=== PATIENT | female | born 1985 | race Caucasian/White ===

== ENCOUNTER 2021-01-01 06:56 | Day surgery (SDC) | payer BC ==
--- NOTE | 2020-12-31 11:41 | PCM.PREANE ---
Preanesthetic Assessment - Anesthesia/Transfusion/Family Hx Anesthesia History: Prior Anesthesia Without Reaction Family History of Anesthesia Reaction: No Transfusion History: No Prior Transfusion(s) Intubation History: Unknown - Review of Systems General: No Symptoms Pulmonary: No Symptoms (Former smoker: quit 17 yrs ago. ETOH: occasionally; Marijuana: yesterday History of Methamphetamine use in 2019.) Cardiovascular: No Symptoms, Dyspnea on Exertion, Lightheadedness (hypoglycemic) Gastrointestinal: No Symptoms (GERD) Neurological: No Symptoms, Numbness (bilateral with left greater than right CTS.) Other: Reports: Easy Bruising, Liver Problems (Fatty Liver in the past.), Depression, Anxiety - Physical Assessment NPO Status Date: 12/31/20 NPO Status Time: 21:00 Vital Signs: HR:66 Sat:98% Temp:97.8 B/P:114/50 Resp:16 Height: 1.68 m Weight: 115 kg ASA Class: 3 Mental Status: Alert & Oriented x3 Airway Class: Mallampati = 3 Dentition: Reports: Dentures (upper glued in solid.), Caries Thyro-Mental Finger Breadths: 3 Mouth Opening Finger Breadths: 3 ROM/Head Extension: Full Lungs: Clear to Auscultation, Normal Respiratory Effort Cardiovascular: Regular Rate, Regular Rhythm, No Murmurs - Allergies Allergies/Adverse Reactions: Allergies Allergy/AdvReac Type Severity Reaction Status Date / Time bee venom protein (honey bee) Allergy Anaphylactic Verified 01/01/21 07:30 Shock - Anesthesia Plan Pre-Op Medication Ordered: None - Acknowledgements Anesthesia Type Planned: MAC Pt an Appropriate Candidate for the Planned Anesthesia: Yes Alternatives and Risks of Anesthesia Discussed w Pt/Guardian: Yes Pt/Guardian Understands and Agrees with Anesthesia Plan: Yes PreAnesthesia 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 [No Known Home Meds] 12/31/20 [History] - CURRENT (IN HOUSE) MEDS Current Meds: Current Medications Lactated Ringer's (Ringers, Lactated) 1,000 mls @ 125 mls/hr IV ASDIRECTED MARGI Stop: 01/01/21 23:00 Lidocaine/Sodium Bicarbonate (Lidocaine 1%/Sod Bicarbonate In Ns 8.4% 1 Ml Syringe) 0.25 ml IDERM ONETIME PRN PRN Reason: Prior to IV Start Stop: 01/01/21 18:00 Sodium Chloride (Sodium Chloride 0.9% 10 Ml Syringe) 10 ml FLUSH ASDIRECTED PRN PRN Reason: Keep Vein Open Stop: 01/01/21 18:00
[~2021-01-01 06:56] MED LIST: Lactated Ringers 1,000 ML IV SCH; Lidocaine 1%/Sod Bicarbonate in NS 8.4% 1 ML Syringe IDERM PRN; Sodium Chloride 0.9% 10 ML Syringe FLUSH PRN
[2021-01-01] MEDS ORDERED: Lidocaine 1% 4 ML ONE (07:05)
[2021-01-01] MEDS ORDERED: Propofol 200 MG/20 ML SDV ONE ×2 (07:05→08:10)
[2021-01-01] MEDS ORDERED: fentaNYL 100 MCG/2 ML SDV ONE (07:05)
[2021-01-01] MEDS ORDERED: Midazolam 1 MG/ML 2 ML SDV ONE (07:06)
[2021-01-01] MEDS ORDERED: Lidocaine 1% with EPINEPHrine 1:100,000 10 ML MDV ONE (07:20)
[2021-01-01] MEDS ORDERED: diphenhydrAMINE 50 MG/ML SDV IVPUSH PRN (08:06)
[2021-01-01] MEDS ORDERED: Midazolam 1 MG/ML 2 ML SDV IVPUSH PRN (08:06)
[2021-01-01] MEDS ORDERED: HYDROmorphone 0.5 MG/0.5 ML Syringe IVPUSH PRN (08:06)
[2021-01-01] MEDS ORDERED: ePHEDrine 50 MG/ML SDV IVPUSH PRN (08:06)
[2021-01-01] MEDS ORDERED: Ondansetron 4 MG/2 ML SDV IVPUSH PRN (08:06)
[2021-01-01] MEDS ORDERED: Lactated Ringers 1,000 ML ONE (08:33)
--- NOTE | 2021-01-01 08:38 | PCM.OPNOTE ---
- General Post-Op/Procedure Note Date of Surgery/Procedure: 01/01/21 Operative Procedure(s): IUD removal. Colposcopy with ECC and cervical biopsy x2. Mirena IUD insertion Findings: Speculum exam with grossly normal appearance of the cervix. IUD threads not seen. With acetic acid wash there is small area of AWE noted at the 6:00. Pre Op Diagnosis: IUD threads lost and IUD - requires removal. Abnormal pap smear. HMB - desires new IUD insertion Post-Op Diagnosis: Same Anesthesia Technique: MAC Primary Surgeon: Nallely Herr Anesthesia Provider: Vani Child Pathology: ECC and cervical biopsy x2 Fluid Replacement, Intraop: 550 Output, Urine Amount: 0 (Voided prior case ) EBL in mLs: 5 Complications: None Condition: Good Free Text/Narrative:: The patient was brought to the OR where anesthesia was induced without difficulty. She was placed in a dorsal lithotomy position. A sterile speculum was placed into the vagina with adequate visualization of the cervix noted.Gauze sponges soaked in 5% acetic acid were placed next to the cervix and then removed. Systematic colposcopic evaluation was undertaken. Examination was adequate, entire SCJ seen. Faint area of AWE noted at 1:00. Next , a tenaculum was placed on the anterior lip of the cervix. A forceps was placed into the cervical canal, but IUD strings not felt. IUD hook then inserted into the uterus several times, but not able to withdraw strings. A Pablo Stones forceps was then inserted into the uterus. After several attempts the IUD was able to be grasped and extracted. On inspection it was noted to be intact. An endocervical curettage was then performed. Cervical biopsy was taken using Baby Tischler biopsy forceps at 1:00 and 7:00. Cautery used to obtain hemostasis of biopsy sites. Uterus sounded to 7 cm. Mirena IUD placed in usual fashion. IUD strings trimmed to 2 cm from the cervical os. Tenaculum removed and sites appeared hemostatic. Speculum removed. Patient tolerated the procedure. Taken to recovery.
[2021-01-01] MEDS ORDERED: Ketorolac 30 MG/ML SDV ONE (08:43)
--- NOTE | 2021-01-01 09:01 | PCM48HPAN ---
Post Anesthesia Note - EVALUATION WITHIN 48HRS OF ANESTHETIC Vital Signs in Normal Range: Yes Patient Participated in Evaluation: Yes Respiratory Function Stable: Yes Airway Patent: Yes Cardiovascular Function Stable: Yes Hydration Status Stable: Yes Pain Control Satisfactory: Yes Nausea and Vomiting Control Satisfactory: Yes Mental Status Recovered: Yes Vital Signs: Last Vital Signs Temp 36.3 C 01/01/21 08:40 Pulse 68 01/01/21 08:50 Resp 18 01/01/21 08:50 BP 122/53 L 01/01/21 08:50 Pulse Ox 96 01/01/21 08:50
== END 2021-01-01 09:45 | disposition home or self-care (01) ==
LOC: JD.SDS 06:56
PROVIDERS: ATTEND Obstetrics & Gynecology
DX: N72 Inflammatory disease of cervix uteri (principal); N87.9 Dysplasia of cervix uteri, unspecified; N88.8 Other specified noninflammatory disorders of cervix uteri; Z30.433 Encounter for removal and reinsertion of intrauterine contraceptive device; Z87.891 Personal history of nicotine dependence; Z91.030 Bee allergy status
CPT/HCPCS: 57454; 58300; 58301; 81025; J1885; J2250; J2704; J3010; J7120; 00940